=== PATIENT | male | born 1960 | race Caucasian/White ===

== ENCOUNTER 2016-12-17 14:53 | Observation (INO) ==
--- NOTE | 2016-12-17 15:19 | Emergency Department Note ---
Disposition Clinical Impression: Acute bronchitis, Atrial fibrillation, GERD (gastroesophageal reflux disease), Hypertension, Hyperlipidemia, Deep vein thrombosis of lower extremity, DVT prophylaxis, Hepatic steatosis, Splenomegaly, Chest pain Disposition: Admitted As Inpatient Referrals: Marychuy Trivedi CNP [Primary Care Provider] - General Adult HPI - General Stated complaint: R/O DVT From Dr. Trivedi Time Seen by Provider: 12/17/16 15:16 Source: patient, family Limitations: no limitations - History of Present Illness HPI Narrative: 56-year-old male reports the emergency department concerned with a DVT. The patient went for outpatient ultrasound of the upper and lower extremity secondary to complaints of aching in the arms and legs per patient, a DVT was noted in the left peroneal. The patient states that he is taking Xeralto. The patient has no history of malignancy or previous DVT or PE. He takes anticoagulant medication for atrial fibrillation. The patient has had some sinus congestion and a cough and a sensation of chest fullness. He reports he was seen a few days ago and prescribed medication for upper respiratory symptoms. The patient has not passed out or coughed up blood. There is no history of marked leg swelling. There is no history of acute trauma. There is been no coldness blueness numbness or weakness of the arms or legs no vomiting or diarrhea. No left arm or left jaw pain or pauline exertional chest pain. No bleeding of any sort. There is no history of confusion or strokelike symptoms. No trouble walking talking hearing seeing or speaking. No fevers reported no history of difficulty swallowing. The patient has no primary lung disease i.e. asthma or COPD. the patient has a noted history of atrial fibrillation, hypertension, hyperlipidemia, and diabetes. He denies CAD. Pain Scale: 3 - Related Data Home Medications Medication Instructions Recorded Confirmed Fluticasone Propionate Nasal 100 mcg NS DAILY PRN 07/24/15 12/14/16 [Flonase] Losartan [Cozaar] 50 mg PO DAILY 07/24/15 12/14/16 Metformin HCl [Glucophage] 1,000 mg PO BID 07/24/15 12/14/16 Simvastatin [Zocor] 10 mg PO HS 07/24/15 12/14/16 Rivaroxaban [Xarelto] 20 mg PO DAILY 01/21/16 12/14/16 Loratadine [Claritin] 10 mg PO DAILY 03/16/16 12/14/16 Sucralfate [Carafate] 1 gm PO BID 03/16/16 12/14/16 Previous Rx's Medication Instructions Recorded Verapamil ER (24 HR) [Calan SR] 240 mg PO DAILY #30 tablet.er 07/26/15 Metoprolol [Lopressor] 12.5 mg PO BID #60 tablet 08/04/15 Omeprazole [PriLOSEC] 40 mg PO DAILY #60 capsule 08/04/15 Ibuprofen [Motrin] 800 mg PO Q8HR PRN #10 tablet 03/16/16 Albuterol Sulfate [Albuterol 2 puff IH Q4HR PRN #1 hfa.aer.ad 09/29/16 Inhaler] GuaiFENesin ER [Mucinex] 1,200 mg PO BID #28 tbbp.12hr 09/29/16 PredniSONE 40 mg PO DAILY #10 tablet 09/29/16 Benzonatate [Tessalon] 100 - 200 mg PO TID PRN #30 capsule 12/14/16 PredniSONE 20 mg PO DAILY #10 tablet 12/14/16 Allergies Allergy/AdvReac Type Severity Reaction Status Date / Time acetaminophen Allergy Unconscious Verified 07/14/16 21:09 [From Contac Cold-Flu Day and Night] chlorpheniramine Allergy Unconscious Verified 07/14/16 21:09 [From Contac Cold-Flu Day and Night] phenylephrine Allergy Unconscious Verified 07/14/16 21:09 [From Contac Cold-Flu Day and Night] All systems ED: reviewed and negative except as stated. Past Medical History - Past Medical History Medical history: Reports: atrial fibrillation, diabetes, hyperlipidemia, hypertension, kidney stones Surgical history: Reports: orthopedic, other Psychiatric history: Reports: anxiety, depression - Social History Smoking Status: Former smoker Smokeless Tobacco Status: No Alcohol use: Reports: none Drug use: Reports: none Physical Exam - General Limitations: no limitations General appearance: alert, in no apparent distress - Head Head exam: atraumatic, normocephalic, normal inspection - Eye Eye exam: Present: normal appearance, PERRL, EOMI - ENT ENT exam: normal exam, normal oropharynx, mucous membranes moist - Neck Neck exam: Present: normal inspection, full ROM, trachea midline - Chest Chest inspection: Present: normal inspection, symmetric chest wall rise - Respiratory Respiratory exam: Present: normal lung sounds bilaterally. Absent: respiratory distress - Cardiovascular Cardiovascular exam: Present: regular rate, normal rhythm, normal heart sounds - Abdominal Exam Abdominal exam: Present: soft, Non-Tender, normal bowel sounds. Absent: tenderness, distention, guarding, rebound, rigidity, trauma, pulsatile mass - Extremities Exam Extremities exam: Present: normal inspection, full ROM, normal capillary refill , calf tenderness. Absent: tenderness, pedal edema, joint swelling - Expanded Lower Extremity Exam Lower leg exam: Absent: Homans' sign Neurovascular/Tendon exam: Absent: pulse deficit, motor deficit, sensory deficit , tendon deficit, extremity cold to touch, pallor - Back Exam Back exam: Present: normal inspection, full ROM. Absent: tenderness, CVA tenderness (R), CVA tenderness (L), vertebral tenderness - Neurological Exam Neurological exam: Present: alert, oriented X3, CN II-XII intact. Absent: motor sensory deficit - Psychiatric Psychiatric exam: Present: normal affect, normal mood - Skin Skin exam: Present: warm, dry, intact, normal color. Absent: rash, cyanosis, diaphoresis, erythema, pallor, mottled Course Vital Signs Temperature 97.9 F 12/17/16 15:11 Pulse Rate 66 12/17/16 15:11 Respiratory Rate 16 12/17/16 15:11 Blood Pressure 174/109 12/17/16 15:11 O2 Sat by Pulse Oximetry 98 12/17/16 15:11 Temperature 97.9 F 12/17/16 15:11 Pulse Rate 65 12/17/16 18:15 Respiratory Rate 16 12/17/16 18:15 Blood Pressure 162/104 12/17/16 18:15 O2 Sat by Pulse Oximetry 95 12/17/16 18:15 Oxygen Delivery Oxygen Delivery Room Air Medical Decision Making - [facility] Narrative Medical decision making narrative: The patient began experiencing some chest discomfort in the ED, he is on anticoagulant medication, aspirin was ordered. The patient has a positive DVT study on the left side, his CTA reveals no evidence of PE. The patient is an male, over 50, has a history of diabetes, hypertension, hyperlipidemia, as well as atrial fibrillation. He has not had a heart catheter or stress test for many years. Based on his apparent DVT while on anticoagulant medication, in association with chest pain and multiple risk factors, I thought it be would be appropriate to admit the patient to the hospital. I reviewed the case with the hospitalist motion picture printer. - Lab Data Lab results reviewed: Yes I reviewed the patient's lab results. Result diagrams: 12/17/16 15:30 12/17/16 15:30 Lab Results 12/17/16 12/17/16 12/17/16 Range/Units 15:30 15:30 15:30 WBC 8.5 (4.3-11.1) K/mcL RBC 5.20 (4.19-5.50) M/mcL Hgb 15.7 (12.9-16.9) g/dL Hct 44.2 (37.5-50.1) % MCV 85.0 (83.0-100.0) fL MCH 30.2 (28.0-33.3) pg MCHC 35.5 (31.6-35.5) g/dL RDW 11.9 (11.5-14.5) % Plt Count 244 (140-400) K/mcL MPV 10.8 (9.4-12.4) fL Immature Gran % 0.6 (0-4) % Seg Neutrophils % 55.2 % Lymphocytes % 34.6 % Monocytes % 6.4 % Eosinophils % 2.6 % Basophils % 0.6 % Neutrophils # 4.7 (1.6-8.9) K/mcL Lymphocytes # 2.9 (0.6-4.6) K/mcL Monocytes # 0.5 (0.0-1.3) K/mcL Eosinophils # 0.2 (0.0-0.6) K/mcL Basophils # 0.1 (0.0-0.2) K/mcL PT 16.9 H (9.4-12.1) Seconds INR 1.5 APTT 36.2 H (26.0-36.0) Seconds Sodium 136 (136-145) mEq/L Potassium 3.5 (3.5-4.5) mEq/L Chloride 101 (98-109) mEq/L Carbon Dioxide 25 (19-29) mEq/L BUN 13 (8-26) mg/dL Creatinine 0.76 (0.72-1.25) mg/dL Est GFR ( Amer) > 60 (> 60) Est GFR (Non-Af Amer) > 60 (> 60) BUN/Creatinine Ratio 17 (6-26) Glucose 188 H (70-99) mg/dL Calculated Osmolality 287 (280-300) Calcium 9.4 (8.6-10.8) mg/dL Total Bilirubin 0.8 (0.2-1.2) mg/dL Direct Bilirubin 0.3 (0.0-0.5) mg/dL Indirect Bilirubin 0.5 (0.0-1.2) mg/dL AST 19 (5-34) Units/L ALT 35 (0-55) Units/L Alkaline Phosphatase 63 (38-126) Units/L Creatine Kinase 44 (30-200) Units/L Troponin I (0-0.03) ng/mL Serum Total Protein 7.0 (6.0-8.3) g/dL Albumin 3.9 (3.5-5.0) g/dL Globulin 3.1 (2.4-3.5) g/dL Albumin/Globulin Ratio 1.3 (1.1-2.2) Lipase 37 (8-78) Units/L 03/16/17 Range/Units 15:30 WBC (4.3-11.1) K/mcL RBC (4.19-5.50) M/mcL Hgb (12.9-16.9) g/dL Hct (37.5-50.1) % MCV (83.0-100.0) fL MCH (28.0-33.3) pg MCHC (31.6-35.5) g/dL RDW (11.5-14.5) % Plt Count (140-400) K/mcL MPV (9.4-12.4) fL Immature Gran % (0-4) % Seg Neutrophils % % Lymphocytes % % Monocytes % % Eosinophils % % Basophils % % Neutrophils # (1.6-8.9) K/mcL Lymphocytes # (0.6-4.6) K/mcL Monocytes # (0.0-1.3) K/mcL Eosinophils # (0.0-0.6) K/mcL Basophils # (0.0-0.2) K/mcL PT (9.4-12.1) Seconds INR APTT (26.0-36.0) Seconds Sodium (136-145) mEq/L Potassium (3.5-4.5) mEq/L Chloride (98-109) mEq/L Carbon Dioxide (19-29) mEq/L BUN (8-26) mg/dL Creatinine (0.72-1.25) mg/dL Est GFR ( Amer) (> 60) Est GFR (Non-Af Amer) (> 60) BUN/Creatinine Ratio (6-26) Glucose (70-99) mg/dL Calculated Osmolality (280-300) Calcium (8.6-10.8) mg/dL Total Bilirubin (0.2-1.2) mg/dL Direct Bilirubin (0.0-0.5) mg/dL Indirect Bilirubin (0.0-1.2) mg/dL AST (5-34) Units/L ALT (0-55) Units/L Alkaline Phosphatase (38-126) Units/L Creatine Kinase (30-200) Units/L Troponin I 0.00 (0-0.03) ng/mL Serum Total Protein (6.0-8.3) g/dL Albumin (3.5-5.0) g/dL Globulin (2.4-3.5) g/dL Albumin/Globulin Ratio (1.1-2.2) Lipase (8-78) Units/L - Radiology Data Radiology results reviewed: Yes I reviewed the patient's radiology results.
[2016-12-17 15:58] LABS: Basophils # 0.1 K/mcL (0.0-0.2); Basophils % 0.6 %; Eosinophils # 0.2 K/mcL (0.0-0.6); Eosinophils % 2.6 %; Hematocrit 44.2 % (37.5-50.1); Hemoglobin 15.7 g/dL (12.9-16.9); Immature Granulocytes % 0.6 % (0-4); Lymphocytes # 2.9 K/mcL (0.6-4.6); Lymphocytes % 34.6 %; Mean Corpuscular HGB Conc 35.5 g/dL (31.6-35.5); Mean Corpuscular Hemoglobin 30.2 pg (28.0-33.3); Mean Platelet Volume 10.8 fL (9.4-12.4); Monocytes # 0.5 K/mcL (0.0-1.3); Monocytes % 6.4 %; Neutrophils # 4.7 K/mcL (1.6-8.9); Platelet Count 244 K/mcL (140-400); Red Cell Distribution Width 11.9 % (11.5-14.5); Segmented Neutrophils % 55.2 %
[2016-12-17 16:02] LABS: INR 1.5; Prothrombin Time 16.9 Seconds (9.4-12.1)
[2016-12-17 16:05] LABS: Activated Partial Thrombo Time 36.2 Seconds (26.0-36.0)
[2016-12-17 16:14] LABS: Alanine Aminotransferase 35 Units/L (0-55); Albumin 3.9 g/dL (3.5-5.0); Albumin/Globulin Ratio 1.3 (1.1-2.2); Alkaline Phosphatase 63 Units/L (38-126); Aspartate Amino Transferase 19 Units/L (5-34); BUN/Creatinine Ratio 17 (6-26); Bilirubin,Direct 0.3 mg/dL (0.0-0.5); Bilirubin,Indirect 0.5 mg/dL (0.0-1.2); Bilirubin,Total 0.8 mg/dL (0.2-1.2); Blood Urea Nitrogen 13 mg/dL (8-26); Calcium 9.4 mg/dL (8.6-10.8); Carbon Dioxide 25 mEq/L (19-29); Chloride 101 mEq/L (98-109); Creatine Kinase 44 Units/L (30-200); Globulin 3.1 g/dL (2.4-3.5); Glucose 188 mg/dL (70-99); Lipase 37 Units/L (8-78); Osmolality,Calculated 287 (280-300); Potassium 3.5 mEq/L (3.5-4.5); Sodium 136 mEq/L (136-145); eGFR For African Americans > 60 (> 60); eGFR For Non-African Americans > 60 (> 60)
[2016-12-17] MEDS ORDERED: Aspirin 325 MG TABLET PO ONE (18:10)
[2016-12-17] MEDS ORDERED: D5% in Water 1,000 ML IV PRN (20:11)
[2016-12-17] MEDS ORDERED: Ibuprofen 400 MG TABLET PO PRN (20:11)
[2016-12-17] MEDS ORDERED: Dextrose Gel 15 GM PO PRN ×2 (20:11)
[2016-12-17] MEDS ORDERED: *HR* Dextrose 50 % in Water (Syg) 50 ML SYRINGE IVP PRN (20:11)
[2016-12-17] MEDS ORDERED: Ondansetron 4 MG/2 ML VIAL IVP PRN (20:11)
[2016-12-17] MEDS ORDERED: Naloxone 0.4 MG/ML INJ IVP PRN (20:11)
[2016-12-17] MEDS ORDERED: Nitroglycerin 0.4 MG TAB.SUBL SL PRN (20:17)
[2016-12-17] MEDS ORDERED: Fluticasone Propionate Nasal 50 MCG/SPRAY BOTTLE NS PRN (20:17)
--- NOTE | 2016-12-17 20:33 | Internal Med History&Physical ---
Date of Encounter: 12/17/16 Time of Encounter: 19:35 Assessment and Plan (1) Deep vein thrombosis (DVT) of left lower extremity Current visit: Yes Status: Acute 1. I called and spoke with [facility] (Dr. Wheeler) and asked for guidance and consult. 2. Will start Lovenox tonight as recommended by [facility]. 3. Stop Xarelto -- last dose this morning. 4. Outpatient [facility] follow up. Qualifiers: Affected thrombotic vein of extremity: other lower extremity vein Chronicity: acute Qualified Code(s): I82.492 - Acute embolism and thrombosis of other specified deep vein of left lower extremity (2) Atrial fibrillation Current visit: Yes Status: Chronic 1. Currently in NSR. 2. Continue home meds as appropriate. 3. Monitor on telemtery. 4. supervisor intermediates anti-coagulation per [facility]. Qualifiers: Atrial fibrillation type: paroxysmal Qualified Code(s): I48.0 - Paroxysmal atrial fibrillation (3) DM type 2 (diabetes mellitus, type 2) Current visit: No Status: Chronic 1. Hold oral meds (Metformin). 2. SSI while in hospital. 3. Adjust insulin coverage as necessary to maintain glucose control. Qualifiers: Diabetes mellitus complication status: without complication Diabetes mellitus superintendent marine oil terminal insulin use: without superintendent marine oil terminal use Qualified Code(s): E11.9 - Type 2 diabetes mellitus without complications (4) Hypertension Current visit: Yes Status: Chronic 1. Continue home meds as appropriate. 2. Monitor and adjust BP meds as necessary. Qualifiers: Hypertension type: essential hypertension Qualified Code(s): I10 - Essential (primary) hypertension (5) DVT prophylaxis Current visit: Yes Status: Acute 1. Lovenox as above. Internal Medicine - H&P: HPI Chief complaint: Left Leg Pain Admitted From: Emergency Dept Plans for Post Hospital Care: Home History of present illness: Mr. Rooney is a 56 year old male who presents with complaints of left leg pain. He was seen in the ER and diagnosed with acute thrombus of left lower extremity and subsequently admitted to hospitalist service. Of note, patient has been on chronic Xarelto for the last 2 years for treatment of his atrial fibrillation. He has not missed any doses of Xarelto except for dental procedures. He denies any trauma, prolonged travel, or sedentary lifestyle. He did have a significant fracture to his left leg in 1990 requiring surgical intervention. He has never had a DVT. Other than his leg pain, he feels well. He denies any chest pain, shortness of breath, palpitations, fevers, cough, vomiting, or diarrhea. I called and poke with Dr. Wheeler ([facility]) who advises we start Lovenox tonight. Past Med Surg Social Fam HX - Past Medical History Attestation: Yes The following information was validated with the patient. Source: patient, old records reviewed Medical history: atrial fibrillation, diabetes, hyperlipidemia, hypertension, kidney stones Psychiatric history: anxiety, depression - Past Surgical History Surgical History: orthopedic, other - Social History Smoking Status: Former smoker Smokeless Tobacco Status: No Alcohol use: none Drug use: none Current living situation: Home, With Family Activity Level: Independent ambulation, Very active Recent Out of Country Travel Within the Last 8 Weeks: No - Family History Mother Adopted: No Living Status: Hx Family Cardiac Disorders: No Hx Family Respiratory Disorders: No Hx Family Cancer: Yes Hx Family GI Disorders: No Hx Family Endocrine Disorder: No Hx Family Neuromuscular Disorders: No Hx Family Neurologic Disorders: No Hx Family HEENT Disorders: No Hx Family Autoimmune Disorders: No Father Living Status: Hx Family Cancer: No Internal Medicine - H&P: Meds Fluticasone Propionate Nasal [Flonase] 100 mcg NS DAILY PRN 07/24/15 [History] Metformin HCl [Glucophage] 1,000 mg PO BID 07/24/15 [History] Verapamil ER (24 HR) [Calan SR] 240 mg PO DAILY #30 tablet.er 07/26/15 [Rx] Rivaroxaban [Xarelto] 20 mg PO DAILY 01/21/16 [History] Loratadine [Claritin] 10 mg PO DAILY 03/16/16 [History] Sucralfate [Carafate] 1 gm PO BID 03/16/16 [History] Ammonium Lactate 1 appl TP BID 12/17/16 [History] Etodolac 500 mg PO BID PRN 12/17/16 [History] Gabapentin [Neurontin] 300 mg PO TID 12/17/16 [History] Ibuprofen [Motrin] 600 mg PO BID PRN 12/17/16 [History] Losartan Potassium [Cozaar] 50 mg PO DAILY 12/17/16 [History] Metoprolol [Lopressor] 25 mg PO BID 12/17/16 [History] Nitroglycerin [Nitrostat] 0.4 mg SL Q5M PRN 12/17/16 [History] Omeprazole [PriLOSEC] 40 mg PO DAILY 12/17/16 [History] Simvastatin [Zocor] 10 mg PO HS 12/17/16 [History] SitaGLIPtin [Januvia] 100 mg PO DAILY 12/17/16 [History] Allergies acetaminophen [From Contac Cold-Flu Day and Night] Allergy (Verified 07/14/16 21 :09) Unconscious chlorpheniramine [From Contac Cold-Flu Day and Night] Allergy (Verified 21:09) Unconscious phenylephrine [From Contac Cold-Flu Day and Night] Allergy (Verified 07/14/16 21 :09) Unconscious - Constitutional Constitutional: no chills, no fever(s), no malaise, no night sweats - EENT Eyes: no blurry vision, no change in vision Ears: no ear pain, no tinnitus Nose, mouth and throat: nasal congestion, no sinus pressure, no sore throat - Cardiovascular Cardiovascular ROS IM: no chest pain, no dyspnea, no dyspnea on exertion, no palpitations - Respiratory Respiratory: no cough, no dyspnea, no hemoptysis, no dyspnea on exertion, no wheezing, no chest congestion, no excessive phlegm production, no change in phlegm color - Gastrointestinal Gastrointestinal: no abdominal pain, no diarrhea, no hematemesis, no hematochezia, no melena, no nausea, no vomiting - Genitourinary Genitourinary ROS male: no dysuria, no flank pain, no hematuria - Musculoskeletal Musculoskeletal ROS IM: arthralgias, muscle cramps (LLE), myalgias (LLE), no joint swelling - Integumentary Integumentary IM: no rash, no jaundice - Neurological Neurological ROS: no dizziness, no focal weakness, no frequent falls - Psychiatric Psychiatric: no anxiety, no depression - Endocrine Endocrine IM: no polydipsia, no polyuria - Hematologic/Lymphatic Hematologic/Lymphatic: easy bruising, no lymphadenopathy - Allergic/Immunologic Allergic/Immunologic: no wheezing, no GI upset with certain foods - Constitutional Vitals: Temp Pulse Resp BP Pulse Ox 97.9 F 65 16 144/106 95 12/17/16 15:11 12/17/16 18:15 12/17/16 19:33 12/17/16 19:33 12/17/16 18:15 General appearance: Present: cooperative, A&O X 3, pleasant, no acute distress, answers questions appropriately - Head Head exam: Present: atraumatic, normal inspection - Expanded Head Exam Head exam expanded: Absent: abrasion, contusion, general tenderness - Eye Eye exam: Present: EOMI, normal appearance, PERRL. Absent: scleral icterus Pupils: Present: normal accommodation - ENT ENT exam: Present: mucous membranes moist, normal exam, normal external ear exam , normal oropharynx Additional comments: mild nasal congestion - Neck Neck exam general surgery: Present: full ROM, supple. Absent: lymphadenopathy, tenderness, thyromegaly - Expanded Neck Exam Neck exam: Absent: carotid bruit - Respiratory Respiratory exam: Present: CTAB. Absent: chest wall tenderness, rales, respiratory distress, rhonchi, wheezes - Cardiovascular Cardiovascular exam: Present: RRR, +S1, +S2. Absent: diastolic murmur, systolic murmur - GI/Abdominal GI/Abdominal exam: Present: soft. Absent: guarding, hepatomegaly, rebound, splenomegaly, tenderness - Extremities Exam Extremities exam: Present: calf tenderness (LLE), full ROM, warm. Absent: joint swelling, pedal edema - Back Exam Back exam: Present: normal inspection. Absent: CVA tenderness (L), CVA tenderness (R) - Neurological Exam Neurological exam: Present: alert, CN II-XII intact, oriented X3, no focal deficits - Psychiatric Psychiatric exam: Present: normal affect, normal mood - Skin Skin exam: Present: dry, warm. Absent: rash Internal Med - H&P Results - Labs CBC & Chem 7: 12/17/16 15:30 12/17/16 15:30 - EKG Data -: EKG Interpreted by Myself - EKG Data Prior EKG available for review: yes EKG comments: 12/17/16 20:39 Sinus rhythm; LVH; possible old septal [place]; no acute ST-T changes - Diagnostic Studies CT scan - chest Additional comments: Report reviewed -- no PE - VTE Reasons for not Prescribing Prophylaxis: Not indicated-Anticoagulated or INR therapeutic
[2016-12-17 20:57] LABS: Hemoglobin A1C 9.5 %
[2016-12-17] MEDS: 0.9 % Sodium Chloride w KCl 20 MEQ/1,000 ML MLS IVC SCH (22:33)
[2016-12-17] MEDS: Sucralfate 1 GM TABLET PO SCH (22:35)
[2016-12-17] MEDS: Gabapentin 300 MG CAPSULE PO SCH (22:36)
[2016-12-17] MEDS: *HR* Enoxaparin 100 MG/ML SYRINGE SQ SCH (22:37)
[2016-12-18 05:08] LABS: Basophils # 0.1 K/mcL (0.0-0.2); Basophils % 0.8 %; Eosinophils # 0.2 K/mcL (0.0-0.6); Eosinophils % 2.6 %; Hematocrit 44.7 % (37.5-50.1); Hemoglobin 15.4 g/dL (12.9-16.9); Immature Granulocytes % 0.7 % (0-4); Lymphocytes # 2.5 K/mcL (0.6-4.6); Lymphocytes % 33.4 %; Mean Corpuscular HGB Conc 34.5 g/dL (31.6-35.5); Mean Corpuscular Hemoglobin 29.7 pg (28.0-33.3); Mean Corpuscular Volume 86.3 fL (83.0-100.0); Mean Platelet Volume 10.9 fL (9.4-12.4); Monocytes # 0.5 K/mcL (0.0-1.3); Monocytes % 7.4 %; Platelet Count 241 K/mcL (140-400); Red Blood Count 5.18 M/mcL (4.19-5.50); Segmented Neutrophils % 55.1 %
[2016-12-18 05:28] LABS: BUN/Creatinine Ratio 15 (6-26); Blood Urea Nitrogen 11 mg/dL (8-26); Calcium 8.5 mg/dL (8.6-10.8); Carbon Dioxide 25 mEq/L (19-29); Chloride 103 mEq/L (98-109); Glucose 233 mg/dL (70-99); Osmolality,Calculated 293 (280-300); Potassium 3.6 mEq/L (3.5-4.5); Sodium 138 mEq/L (136-145); eGFR For African Americans > 60 (> 60); eGFR For Non-African Americans > 60 (> 60)
[2016-12-18] MEDS: *HR* Enoxaparin 100 MG/ML SYRINGE SQ SCH ×2 (06:20→17:44)
[2016-12-18] MEDS ORDERED: Verapamil ER (24 HR) 240 MG TABLET.ER PO SCH (09:00)
[2016-12-18] MEDS ORDERED: Loratadine 10 MG TABLET PO SCH (09:00)
[2016-12-18] MEDS: Insulin LISPRO 300 UNITS/3 ML VIAL SQ SCH ×3 (09:25→17:44)
[2016-12-18] MEDS: Sucralfate 1 GM TABLET PO SCH (09:26)
[2016-12-18] MEDS: Gabapentin 300 MG CAPSULE PO SCH ×2 (09:27→13:51)
[2016-12-18] MEDS: 0.9 % Sodium Chloride w KCl 20 MEQ/1,000 ML MLS IVC SCH (12:03)
[2016-12-18 14:58] VITALS: BP 129/87
--- NOTE | 2016-12-18 17:48 | Oncology Inp Consult Note ---
Date of Encounter: 12/18/16 Time of Encounter: 17:46 - Data of Consult Patient: new to practice Consult date: 12/18/16 Requesting Physician: Александр Trivedi Primary Care Provider: Marychuy Trivedi CNP - Consult Narrative Reason for consult: Suspected hypercoagulable state History of present illness: Very pleasant 56-year-old male patient of Marychuy Trivedi AVA seen in consultation regarding newly diagnosed left lower extremity DVT. Patient had upper and lower extremity Doppler studies 12/17/16 to evaluate left lower extremity pain and reportedly was found with a left lower extremity DVT involving the left, peroneal vein. Unfortunately, I do not have report of lower extremity Doppler. An upper extremity Doppler study from same day is negative for DVT. Patient does have an underlying diagnosis of atrial fibrillation for which she has been on Xarelto for the last 2 years or so per his report. He is established with Dr. Das for his ongoing cardiology care. Upon admission, his case was discussed with my partner Dr. Wheeler who appropriately recommended switching to Lovenox due to concern about anticoagulation failure with Xarelto. Hematology is consulted for further evaluation and recommendations regarding newly diagnosed left lower extremity DVT in the setting of ongoing Xarelto therapy for atrial fibrillation. This is suggestive of anticoagulation failure. Patient seen and examined at bedside. Chart reviewed for details of ongoing care by hospital team which is much appreciated. At the time of evaluation, he is not having any new physical complaints. Left lower extremity pain that led to hospitalization near completely resolved.No swelling He does not have any prior diagnosis of malignancy and no relevant family history of malignancy or hypercoagulable state. He denies any recent history of constitutional symptoms such as fevers, chills, night sweats, weight or appetite changes, aquagenic pruritus etc. I discussed patient's case with Ms. Kyung Melton CNP of the hospitalist team and we are unable to locate patient's lower extremity Doppler including on eCW. Given improvement in patient's overall condition, he is being planned for discharge once okayed by hematology. Rest of past medical, surgical, family, social history detailed below and verified with patient today. Review of systems: 12 point review of systems performed with patient and positive findings noted in history of present illness. All other systems are negative: Physical exam: Vital Signs Temp 98.1 F 12/18/16 14:57 Pulse 74 12/18/16 14:57 Resp 17 12/18/16 14:57 BP 129/87 12/18/16 14:57 Pulse Ox 95 12/18/16 14:57 GENERAL: Alert and oriented, comfortable appearing. Mental Status: Affect appropriate for circumstances HEENT: Sclerae anicteric. No mucositis or thrush. No other oral or pharyngeal lesions or erythema. Skin: No rashes or petechiae. No evidence of skin malignancy Lymph nodes: No cervical, supraclavicular, axillary, or inguinal adenopathy. Lungs: Clear to auscultation bilaterally. Clear to percussion bilaterally. Cardiovascular: Regular rate and rhythm. No gallops, murmurs, or rubs. Abdomen: Soft, nontender; No organomegaly or masses palpable. Extremities: No edema. No calf swelling or tenderness. No joint deformity. Neurologic: Alert, normal gait; no focal weakness or sensory abnormalities. Results: Laboratory Last Values WBC 7.3 K/mcL (4.3-11.1) 12/18/16 04:20 RBC 5.18 M/mcL (4.19-5.50) 12/18/16 04:20 Hgb 15.4 g/dL (12.9-16.9) 12/18/16 04:20 Hct 44.7 % (37.5-50.1) 12/18/16 04:20 MCV 86.3 fL (83.0-100.0) 12/18/16 04:20 MCH 29.7 pg (28.0-33.3) 12/18/16 04:20 MCHC 34.5 g/dL (31.6-35.5) 12/18/16 04:20 RDW 12.0 % (11.5-14.5) 12/18/16 04:20 Plt Count 241 K/mcL (140-400) 12/18/16 04:20 MPV 10.9 fL (9.4-12.4) 12/18/16 04:20 Immature Gran % 0.7 % (0-4) 12/18/16 04:20 Seg Neutrophils % 55.1 % 12/18/16 04:20 Lymphocytes % 33.4 % 12/18/16 04:20 Monocytes % 7.4 % 12/18/16 04:20 Eosinophils % 2.6 % 12/18/16 04:20 Basophils % 0.8 % 12/18/16 04:20 Neutrophils # 4.0 K/mcL (1.6-8.9) 12/18/16 04:20 Lymphocytes # 2.5 K/mcL (0.6-4.6) 12/18/16 04:20 Monocytes # 0.5 K/mcL (0.0-1.3) 12/18/16 04:20 Eosinophils # 0.2 K/mcL (0.0-0.6) 12/18/16 04:20 Basophils # 0.1 K/mcL (0.0-0.2) 12/18/16 04:20 PT 16.9 Seconds (9.4-12.1) H 12/17/16 15:30 INR 1.5 12/17/16 15:30 APTT 36.2 Seconds (26.0-36.0) H 12/17/16 15:30 Sodium 138 mEq/L (136-145) 12/18/16 04:20 Potassium 3.6 mEq/L (3.5-4.5) 12/18/16 04:20 Chloride 103 mEq/L (98-109) 12/18/16 04:20 Carbon Dioxide 25 mEq/L (19-29) 12/18/16 04:20 BUN 11 mg/dL (8-26) 12/18/16 04:20 Creatinine 0.73 mg/dL (0.72-1.25) 12/18/16 04:20 Est GFR ( Amer) > 60 (> 60) 12/18/16 04:20 Est GFR (Non-Af Amer) > 60 (> 60) 12/18/16 04:20 BUN/Creatinine Ratio 15 (6-26) 12/18/16 04:20 Glucose 233 mg/dL (70-99) H 12/18/16 04:20 POC Glucose 177 (58-89) H 12/18/16 16:27 Est Mean Plasma Glucose 226 mg/dl 12/17/16 15:30 Hemoglobin A1c 9.5 % (-5.6) H 12/17/16 15:30 Calculated Osmolality 293 (280-300) 12/18/16 04:20 Calcium 8.5 mg/dL (8.6-10.8) L 12/18/16 04:20 Total Bilirubin 0.8 mg/dL (0.2-1.2) 12/17/16 15:30 Direct Bilirubin 0.3 mg/dL (0.0-0.5) 12/17/16 15:30 Indirect Bilirubin 0.5 mg/dL (0.0-1.2) 12/17/16 15:30 AST 19 Units/L (5-34) 12/17/16 15:30 ALT 35 Units/L (0-55) 12/17/16 15:30 Alkaline Phosphatase 63 Units/L (38-126) 12/17/16 15:30 Creatine Kinase 44 Units/L (30-200) 12/17/16 15:30 Troponin I 0.00 ng/mL (0-0.03) 12/17/16 15:30 Serum Total Protein 7.0 g/dL (6.0-8.3) 12/17/16 15:30 Albumin 3.9 g/dL (3.5-5.0) 12/17/16 15:30 Globulin 3.1 g/dL (2.4-3.5) 12/17/16 15:30 Albumin/Globulin Ratio 1.3 (1.1-2.2) 12/17/16 15:30 Lipase 37 Units/L (8-78) 12/17/16 15:30 Radiographic studies: I personally reviewed and interpreted patient's most recent imaging studies dated 12/17/16. I discussed the findings with the patient today. Chest CTA 12/17/16 15:30 IMPRESSION: 1. No evidence of pulmonary embolic disease. 2. No acute pulmonary findings. 3. Hepatic steatosis. 4. Borderline splenomegaly. D/ / 12/17/2016 17:07:53 Yaakov Lopez MD / [email or web address] Interpreting Provider: Yaakov Lopez MD Impression/recommendations: Left lower extremity DVT: This is a new finding with no obvious provoking factors. Patient does not have any recent travel history and is hardly sedentary. Curiously, we are unable to locate the results of lower extremity Doppler to hospitalization. Upper extremity Dopplers negative for DVT. Chest CT angiogram was negative for DVT. In any event, since his new clot is occurring in the setting of Xarelto, agree with recommendation for alternative anticoagulation. Lovenox is certainly reasonable although other NOACs would be equally reasonable including Pradaxa and Eliquis which are likely to be much more convenient. Coumadin of course is another option If he is medically optimal for discharge otherwise, I think he can be discharged on Lovenox and I will plan on seeing him in the office in 2 weeks for further workup including thrombophilia evaluation as well as transition into alternative anticoagulation depending on tolerability on Lovenox. He continues to require long-term anticoagulation on account of his underlying atrial fibrillation for which he is established with cardiology. Inadequate anticoagulation: New left lower extremity DVT while on Xarelto for atrial fibrillation. We are going to try to track down the report of his left lower extremity DVT from yesterday since his account seems quite credible. Recommendations for subsequent anticoagulation will be based on results of thrombophilia testing and residual clot burden at his out-patient follow-up. Suspected hypercoagulable state: Upon discharge, he will need complete thrombophilia studies to assess his clotting recurrence risk. We will also check his D-dimer assay to assess activity of his clotting cascade since normalized d-dimer may indicate low chance of recurrent clot depending on other risk factors above. Upon discharge, I will plan on seeing him in about 2 weeks for further evaluation and anticoagulation recommendations. If there is still lingering concerns regarding lower extremity DVT, we will repeat Doppler to assess residual clot burden. Our office would call him with appointment next week. We'll follow the patient along side you during this hospitalization but please do not hesitate to call regarding interval hematologic questions as they arise. Thank you for your excellent ongoing care for allowing us to see him while in- house. This report was created using voice recognition software and may contain errors. It was signed but not edited to expedite communication. Past Med Surg Social Fam HX - Past Medical History Medical history: atrial fibrillation, diabetes, hyperlipidemia, hypertension, kidney stones Psychiatric history: anxiety, depression - Past Surgical History Surgical History: orthopedic, other - Social History Smoking Status: Former smoker Smokeless Tobacco Status: No Alcohol use: none Drug use: none - Family History Father Living Status: Hx Family Cancer: No Mother Adopted: No Family Member Ethnicity: Non- Twin of Family Member: Yes, Fraternal Living Status: Cause of : cancer brain Hx Family Cardiac Disorders: No Hx Family Respiratory Disorders: No Hx Family Cancer: Yes (lung cancer) Hx Family GI Disorders: No Hx Family Genitourinary Disorders: No Hx Family Endocrine Disorder: Yes Hx Family Musculoskeletal Disorders: No Hx Family Neuromuscular Disorders: No Hx Family Neurologic Disorders: No Hx Family HEENT Disorders: No Hx Family Autoimmune Disorders: No Hx Family Reproductive Disorders: No Hx Family Psychosocial Disorders: No Hx Family Medical Disorders: No Medications and Allergies Fluticasone Propionate Nasal [Flonase] 100 mcg NS DAILY PRN 07/24/15 [History] Metformin HCl [Glucophage] 1,000 mg PO BID 07/24/15 [History] Verapamil ER (24 HR) [Calan SR] 240 mg PO DAILY #30 tablet.er 07/26/15 [Rx] Loratadine [Claritin] 10 mg PO DAILY 03/16/16 [History] Sucralfate [Carafate] 1 gm PO BID 03/16/16 [History] Ammonium Lactate 1 appl TP BID 12/17/16 [History] Etodolac 500 mg PO BID PRN 12/17/16 [History] Gabapentin [Neurontin] 300 mg PO TID 12/17/16 [History] Ibuprofen [Motrin] 600 mg PO BID PRN 12/17/16 [History] Losartan Potassium [Cozaar] 50 mg PO DAILY 12/17/16 [History] Metoprolol [Lopressor] 25 mg PO BID 12/17/16 [History] Nitroglycerin [Nitrostat] 0.4 mg SL Q5M PRN 12/17/16 [History] Omeprazole [PriLOSEC] 40 mg PO DAILY 12/17/16 [History] Simvastatin [Zocor] 10 mg PO HS 12/17/16 [History] SitaGLIPtin [Januvia] 100 mg PO DAILY 12/17/16 [History] Dextrose Gel [Gluctose] 15 gm PO ONCE PRN #0 gel..gram. 12/18/16 [Rx] Enoxaparin [Lovenox] 100 mg SQ Q12HR syringe 12/18/16 [Rx] Insulin LISPRO [HumaLOG] 0 units SQ TIDAC vial 12/18/16 [Rx] Allergies acetaminophen [From Contac Cold-Flu Day and Night] Allergy (Verified 07/14/16 21 :09) Unconscious chlorpheniramine [From Contac Cold-Flu Day and Night] Allergy (Verified 21:09) Unconscious phenylephrine [From Contac Cold-Flu Day and Night] Allergy (Verified 07/14/16 21 :09) Unconscious Oncology - Exam - Constitutional Vitals: Temp Pulse Resp BP Pulse Ox 98.1 F 74 17 129/87 95 12/18/16 14:57 12/18/16 14:57 12/18/16 14:57 12/18/16 14:57 12/18/16 14:57 Oncology - Results - Labs Labs: Short CBC 12/18/16 Range/Units 04:20 WBC 7.3 (4.3-11.1) K/mcL Hgb 15.4 (12.9-16.9) g/dL Hct 44.7 (37.5-50.1) % Plt Count 241 (140-400) K/mcL Neutrophils # 4.0 (1.6-8.9) K/mcL BMP 12/18/16 04:20 Sodium 138 Potassium 3.6 Chloride 103 Carbon Dioxide 25 BUN 11 Creatinine 0.73 Glucose 233 H Calcium 8.5 L Consult Discharge Plan - Plan Instructions: Enoxaparin (Injection), Deep Venous Thrombosis (DC) Additional Instructions: I called in your prescription for Lovenox to [facility] pharmacy in [place]. Please pick it up tonight. Hematology Oncology will call you at home to set up an appointment for a follow up. Please try to stay down at home with your leg elevated. Do not go to work until you follow up with Hematology Oncology and are cleared to go back to work. Return to closest ER if you have any other problems or concerns or if you begin having chest pain or shortness of breath. Referrals: Marychuy Trivedi, AVA [Primary Care Provider] - 12/28/16 4:00 pm
--- NOTE | 2016-12-18 19:12 | Discharge Summary ---
Date of Encounter: 12/18/16 Time of Encounter: 11:00 - Discharge Diagnosis (1) Deep vein thrombosis (DVT) of left lower extremity Priority: Primary Status: Acute Comments: Patient states he went to last testing Center in [facility] to have testing done for decreased circulation in his arms and legs. Patient states at that testing center he was told that he had a DVT in his left lower extremity and had to come to the emergency department. Dr. Loo spoke with Dr. Wheeler on what to do for the patient, he had been on Xarelto for atrial fibrillation and no known injury, long travel, etc. that would precipitate a DVT. Patient states he did not miss any doses of his Xarelto. He was started on Lovenox 100 mg twice a day while he was here. He was seen by hematology oncology and will be discharged on Lovenox 100 twice a day. Qualifiers: Affected thrombotic vein of extremity: other lower extremity vein Chronicity: acute Qualified Code(s): I82.492 - Acute embolism and thrombosis of other specified deep vein of left lower extremity (2) Atrial fibrillation Priority: Secondary Status: Chronic Comments: Patient was in joyce sinus rhythm during admission. Xarleto was stopped and he was started on Lovenox 100mg SQ bid Qualifiers: Atrial fibrillation type: paroxysmal Qualified Code(s): I48.0 - Paroxysmal atrial fibrillation (3) DM type 2 (diabetes mellitus, type 2) Priority: Secondary Status: Chronic Comments: Patient's A1c is 9.5 he was hyperglycemic during visit. He says that he has never seen a adaptive physical educator. Referral was made Continue home medications Qualifiers: Diabetes mellitus complication status: without complication Diabetes mellitus correction insulin use: without local company intermodal truck driver use Qualified Code(s): E11.9 - Type 2 diabetes mellitus without complications (4) Hypertension Priority: Secondary Status: Chronic Comments: Patient states his blood pressure is normally above goal. We did continue his home medication and he was hypertensive. He was given when necessary 10 mg Hydralazine and returned close to his baseline. Continue home medication. I did speak with patient regarding necessity of follow-up care with primary care physician for hypertension. Qualifiers: Hypertension type: essential hypertension Qualified Code(s): I10 - Essential (primary) hypertension (5) DVT prophylaxis Priority: Secondary Status: Acute Comments: Lovenox 100 mg twice a day - Discharge Medications Home Medications: Fluticasone Propionate Nasal [Flonase] 100 mcg NS DAILY PRN 07/24/15 [History] Metformin HCl [Glucophage] 1,000 mg PO BID 07/24/15 [History] Verapamil ER (24 HR) [Calan SR] 240 mg PO DAILY #30 tablet.er 07/26/15 [Rx] Loratadine [Claritin] 10 mg PO DAILY 03/16/16 [History] Sucralfate [Carafate] 1 gm PO BID 03/16/16 [History] Ammonium Lactate 1 appl TP BID 12/17/16 [History] Etodolac 500 mg PO BID PRN 12/17/16 [History] Gabapentin [Neurontin] 300 mg PO TID 12/17/16 [History] Ibuprofen [Motrin] 600 mg PO BID PRN 12/17/16 [History] Losartan Potassium [Cozaar] 50 mg PO DAILY 12/17/16 [History] Metoprolol [Lopressor] 25 mg PO BID 12/17/16 [History] Nitroglycerin [Nitrostat] 0.4 mg SL Q5M PRN 12/17/16 [History] Omeprazole [PriLOSEC] 40 mg PO DAILY 12/17/16 [History] Simvastatin [Zocor] 10 mg PO HS 12/17/16 [History] SitaGLIPtin [Januvia] 100 mg PO DAILY 12/17/16 [History] Dextrose Gel [Gluctose] 15 gm PO ONCE PRN #0 gel..gram. 12/18/16 [Rx] Enoxaparin [Lovenox] 100 mg SQ Q12HR syringe 12/18/16 [Rx] Insulin LISPRO [HumaLOG] 0 units SQ TIDAC vial 12/18/16 [Rx] Allergies/Adverse Reactions: Allergies acetaminophen [From Contac Cold-Flu Day and Night] Allergy (Verified 07/14/16 21 :09) Unconscious chlorpheniramine [From Contac Cold-Flu Day and Night] Allergy (Verified 21:09) Unconscious phenylephrine [From Contac Cold-Flu Day and Night] Allergy (Verified 07/14/16 21 :09) Unconscious Date of admission: 12/17/16 18:41 Primary care physician: Marychuy Trivedi CNP Consults: 12/17/16 20:15 Consult to Physician [CONS] Routine Consulting Provider: Pierre Wheeler Reason for Consult: DVT while on Xarelto Time Notified: 20:16 Call Completed: Yes 12/18/16 11:48 Consult to Crank Hand [CONS] Routine Comment: 12/18/16 16:23 Consult to Oncology Hematology [CONS] Routine Consulting Provider: Pernell Ambrose Reason for Consult: DVT, on Xarelto, discharge on Lovenox Time Notified: 16:24 Call Completed: Yes Discharging clinician: Kyung Jaramillo Anticipated date of discharge: 12/18/16 - Patient Status Disposition: Home, Self-Care Condition: Good Functional capacity at discharge: independent ambulation Overall status at discharge: patient is progressing back to baseline - Discharge Instructions Follow Up With: Marychuy Trivedi CNP [Primary Care Provider] - 12/28/16 4:00 pm Forms: ED Satisfaction Letter Additional Instructions: I called in your prescription for Lovenox to [facility] in [place]. Please pick it up tonight. Hematology Oncology will call you at home to set up an appointment for a follow up. Please try to stay down at home with your leg elevated. Do not go to work until you follow up with Hematology Oncology and are cleared to go back to work. Return to closest ER if you have any other problems or concerns or if you begin having chest pain or shortness of breath. Hospital course: Mr. Rooney is a 56 year old male with a history of hypertension, type 2 diabetes. Patient was in [facility] for outpatient testing and was found that he had a DVT in his left lower extremity. He was sent to the emergency department for treatment and admission. His Xarelto was stopped on admission he states that he did not ever missed a dose. Patient was started on Lovenox 100 mg subcutaneous twice a day, which he will go home with. Patient denies pain, +2 pedal pulses bilaterally, bilateral feet pink and warm. I did discuss with patient that he needs to be off work. Did educate him on need to stay off feet with leg elevated, and take his medication as directed. Patient was seen by hematology oncology physician here today in the office will call patient for a follow-up appointment. I did discuss with patient has hyperglycemia and attempted to discuss with him counting carbohydrates. He states that he has never seen a adaptive physical educator. I did make that consult. Patient is stable for discharge - Time Spent with Patient Total time spent providing and/or coordinating discharge services: Less than 30 minutes - Constitutional Vitals: Temp Pulse Resp BP Pulse Ox 98.1 F 74 17 129/87 95 12/18/16 14:57 12/18/16 14:57 12/18/16 14:57 12/18/16 14:57 12/18/16 14:57 General appearance: Present: cooperative, A&O X 3, pleasant, no acute distress, answers questions appropriately - Head Head exam: Present: normal inspection - Eye Eye exam: Present: normal appearance, conjuntiva pink. Absent: nystagmus - ENT ENT exam: Present: mucous membranes moist, normal exam - Neck Neck exam general surgery: Present: normal inspection. Absent: lymphadenopathy , tenderness - Respiratory Respiratory exam: Present: CTAB. Absent: chest wall tenderness, decreased breath sounds, rales, respiratory distress, rhonchi, stridor, wheezes, tachypnea - Cardiovascular Cardiovascular exam: Present: RRR, +S1, +S2. Absent: clicks, diastolic murmur, systolic murmur - GI/Abdominal GI/Abdominal exam: Present: normal bowel sounds, soft. Absent: firm, hepatomegaly, tenderness - Extremities Exam Extremities exam: Present: full ROM, normal capillary refill, normal inspection , warm, radial pulses palpable and symetrical. Absent: joint swelling, pedal edema, tenderness - Neurological Exam Neurological exam: Present: alert, oriented X3. Absent: facial droop, speech deficit - VTE Reasons for not Prescribing Prophylaxis: Not indicated-Anticoagulated or INR therapeutic
--- NOTE | 2016-12-21 09:36 | Electrocardiograph Report ---
[facility] Test Date: 2016-12-17 Pat Name: Jarek Rooney Department: 103 Room: 3B53 Gender: M [employer] Attendant: : 1960 Requested By: Jd Patten Order Number: [id number] Reading MD: Jassi Palomino MD Measurements Intervals Leland Rate: 61 P: 45 OK: 129 QRS: -33 QRSD: 97 T: -2 QT: 407 QTc: 411 Interpretive Statements SINUS RHYTHM MARKED LEFT AXIS DEVIATION VOLTAGE CRITERIA FOR LVH POSSIBLE SEPTAL MYOCARDIAL INFARCTION, OF INDETERMINATE AGE Electronically Signed On 12-21-2016 9:34:05 EDT by Jassi Palomino MD
== END 2016-12-18 19:37 | disposition home or self-care (01) ==
LOC: EMEROO 14:53 → 3BNU 14:53
PROVIDERS: ADMIT Internal Medicine; ATTEND Internal Medicine